=== PATIENT | male | born 1940 | race Caucasian/White ===

== ENCOUNTER 2016-12-28 23:22 | Emergency (ER) | payer OTHER ==
[~2016-12-28] VITALS: Ht 180.3 cm; Wt 91.8 kg
[2016-12-29 00:13] LABS: ADD MIUA? NO; BILIRUBIN NEGATIVE; BLOOD NEGATIVE; COLOR YELLOW ((YELLOW)); GLUCOSE (STRIP) NEGATIVE; KETONES NEGATIVE; LEUKOCYTES NEGATIVE; NITRITE NEGATIVE; PROTEIN (STRIP) NEGATIVE; SPECIFIC GRAVITY 1.009 (1.000-1.030); UCUL ADDED? NO; UROBILINOGEN 0.2 MG/DL (0.2-1.0)
[2016-12-29 00:23] LABS: HEMATOCRIT 43.1 % (38.0-50.0); MCH 30.5 PG (29.0-34.0); MCHC 34.6 G/DL (30.0-36.0); MCV 88.3 FL (86-99); MEAN PLAT.VOLUME 10.7 uM^3 (9.0-12.4); PLATELET COUNT 172 K/uL (156-360); RBC DIS.WIDTH-CV 13.7 % (11.8-14.6); RBC DIS.WIDTH-SD 43.3 % (39-53); RED BLOOD COUNT 4.88 M/uL (4.00-5.50); WHITE BLOOD COUNT 8.8 K/uL (4.1-10.2)
[2016-12-29 00:35] LABS: CHLORIDE 108 mEq/L (99-109); POTASSIUM 4.2 mEq/L (3.7-5.4); SODIUM 142 mEq/L (136-147)
[2016-12-29 00:36] LABS: GLUCOSE 122 mg/dL (70-99)
[2016-12-29 00:38] LABS: ANION GAP 11 MEQ/L (2-14)
[2016-12-29 00:40] LABS: GFR ESTIMATE (CALCULATED) > 59 mL/min/
[2016-12-29 00:41] LABS: UREA NITROGEN (BUN) 13 mg/dL (9-23)
[2016-12-29] MEDS ORDERED: FLOMAX0.4 MG PO (00:56)
[2016-12-29 01:17] VITALS: BP 116/78
== END 2016-12-29 01:18 | disposition home or self-care (01) ==
LOC: EME 23:22
PROVIDERS: Emergency Medicine
PROC: 0T9B70Z Drainage of Bladder with Drainage Device, Via Natural or Artificial Opening (ICD-10-PCS; principal; 2016-12-29)
DX: R33.9 Retention of urine, unspecified (principal); F17.200 Nicotine dependence, unspecified, uncomplicated
CPT/HCPCS: 80048; 81003; 85027; 99281; 99284